=== PATIENT | female | born 1985 | race African-American/Black ===

== ENCOUNTER 2016-07-29 14:08 | Emergency (ER) | payer OTHER ==
--- NOTE | ~2016-07-29 | CR132 ---
[facility] A Service of [facility] / [facility] RADIOLOGY TEXT RESULTS PATIENT: BRISEIDA METCALF LOCATION: [facility] : 83 UNIT #: [id number] AGE: [address]: ALIYAH PEREZ SEX: F ORDER DR: [id number] [place], [place] [address] [id number] E MR#: [id number] Acc #: [id number] NAME: BRISEIDA METCALF : 1985 SEX: F STUDY DATE/TIME: 07/29/2016 14:33 UNIT: [facility] ROOM: STUDY DESCRIPTION: CR Forearm 2 View Lt Attending Physician: Aliyah Perez Aprn Ordering Physician: Aliyah Perez Aprn Primary Care Physician: Constance Power M.D. MEDICAL IMAGING REPORT This report is preliminary unless electronic signature is present EXAM Left forearm series, 07/29/2016. INDICATION 30-year-old female with a history of trauma posterior and lateral upper extremity pain on the left after a fall down the steps onto concrete today. TECHNIQUE 2 views of the left forearm. COMPARISON STUDIES No comparisons. FINDINGS The examination is negative. There is no acute fracture. Soft tissues are unremarkable. IMPRESSION Negative Dictated by... Kirk Johnson M.D. THIS IS AN ELECTRONICALLY VERIFIED REPORT Kirk Johnson M.D. at 07/29/2016 5:06 PM LYNDON/kel TD: 07/29/2016 16:15 JOB #: [id number] MEDICAL IMAGING REPORT [facility] A Service of [facility] / [facility] RADIOLOGY TEXT RESULTS PATIENT: BRISEIDA METCALF LOCATION: [facility] : 84 UNIT #: [id number] AGE: [address]: ALIYAH PEREZ SEX: F ORDER DR: Page 1 of 1 COPY
--- NOTE | ~2016-07-29 | CR93 ---
[facility] A Service of [facility] & [facility] RADIOLOGY TEXT RESULTS PATIENT: BRISEIDA METCALF LOCATION: [place] : 84 UNIT #: [id number] AGE: [address]: ALIYAH PEREZ SEX: F ORDER DR: [id number] [facility] [address] [place], [place] [address] [id number] E MR#: [id number] Acc #: [id number] NAME: BRISEIDA METCALF. : 1985 SEX: F STUDY DATE/TIME: 07/29/2016 14:33 UNIT: [facility] ROOM: STUDY DESCRIPTION: CR Elbow Min 3 Views Lt Attending Physician: Aliyah Perez Aprn Ordering Physician: Aliyah Perez Aprn Primary Care Physician: Constance Power M.D. MEDICAL IMAGING REPORT This report is preliminary unless electronic signature is present EXAM Left elbow HISTORY Left elbow pain after fall today. FINDINGS AP and lateral examination of the elbow shows satisfactory articulation of the humerus with the proximal radius and ulna. There is no identifiable fracture, dislocation, joint effusion, or radiopaque foreign body in the soft tissues. IMPRESSION Normal elbow. Dictated by... Bharat Haque M.D. THIS IS AN ELECTRONICALLY VERIFIED REPORT Bharat Haque M.D. at 07/30/2016 8:21 AM MILAGROS/edgar TD: 07/29/2016 15:58 JOB #: [id number] MEDICAL IMAGING REPORT Page 1 of 1 COPY
--- NOTE | ~2016-07-29 | CR156 ---
[facility] A Service of [facility] & [facility] RADIOLOGY TEXT RESULTS PATIENT: BRISEIDA METCALF LOCATION: [facility] : 83 UNIT #: [id number] AGE: [address]: ALIYAH PEREZ SEX: F ORDER DR: [id number] [facility] [address] [place], [place] [address] [id number] E MR#: [id number] Acc #: [id number] NAME: BRISEIDA METCALF : 1985 SEX: F STUDY DATE/TIME: 07/29/2016 14:32 UNIT: [facility] ROOM: STUDY DESCRIPTION: CR Humerus Min 2 View Lt Attending Physician: Aliyah Perez Aprn Ordering Physician: Aliyah Perez Aprn Primary Care Physician: Constance Power M.D. MEDICAL IMAGING REPORT This report is preliminary unless electronic signature is present EXAM Left humerus 07/29/2016 INDICATIONS 30-year-old female complaining of upper extremity pain posteriorly and laterally after falling down the steps onto concrete today. TECHNIQUE 2 views left humerus. No comparisons. FINDINGS The examination is negative. There is no acute fracture. Soft tissues unremarkable. IMPRESSION 1. Negative Dictated by... Kirk Johnson M.D. THIS IS AN ELECTRONICALLY VERIFIED REPORT Kirk Johnson M.D. at 07/29/2016 5:06 PM LYNDON/edgar TD: 07/29/2016 16:17 JOB #: [id number] MEDICAL IMAGING REPORT Page 1 of 1 COPY
[~2016-07-29 14:08] MED LIST: ABILIFY5 MG PO; ALBUTEROL17 GM INH; ALBUTEROL20 ml INH; ANTIINFLAMMATORY; BACLOFEN10 MG PO; BACTRIM DS TABL1 TA1 PO; BCP; BIRTH CONTROL PILL; CLEOCIN PO; CYMBALTA PO; FLONASE 0.05% N16 G1; FLONASE16 GM; FLUOXETINE HCL20 M1 PO; HYDROCODON-ACE1 EAC5 PO; HYDROCODONE-APA1 T54 PO; MONTELUKAST SOD10 MG PO; NORCO 5/325 TAB1 TAB PO; OMEPRAZOLE40 M1 PO; ORUDIS75 M1 DOB; PAXIL; PREDNISONE PO; PRENATAL MULTIV1 TA1 PO; PRILOSEC20 MG PO; PROMETHAZINE HC25 MG PO; SINGULAIR PO; VIBRAMYCIN100 M1; VICODIN 5/500 T1 TAB PO; ZITHROMAX PO; ZYRTEC10 M2 PO
== END 2016-07-29 15:40 | disposition home or self-care (01) ==
LOC: CFTX 14:08
DX: S50.02XA Contusion of left elbow, initial encounter (principal); Z88.0 Allergy status to penicillin; Z88.1 Allergy status to other antibiotic agents; W10.9XXA Fall (on) (from) unspecified stairs and steps, initial encounter; Y92.9 Unspecified place or not applicable
CPT/HCPCS: 29105; 73060; 73080; 73090; 99284